=== PATIENT | female | born 1990 | race Caucasian/White ===

== ENCOUNTER 2017-03-23 21:52 | Emergency (ER) | payer BC, OTHER ==
[~2017-03-23] VITALS: Ht 165.1 cm; Wt 124.7 kg
[2017-03-23] MEDS ORDERED: NS 1,000 ML IV ONE (22:15)
[2017-03-23] MEDS ORDERED: HYDROmorphone HCL 1 MG/ML SYRINGE (J1170) IV PRN (22:15)
[2017-03-23] MEDS ORDERED: ONDANSETRON 4MG/2ML VIAL (J2405) IV ONE (22:15)
[2017-03-23 22:41] LABS: BASO % 0.2 % (0.0-1.0); EOS # 0.2 K/mm3 (0.0-0.50); EOS % 1.2 % (0.0-3.0); LARGE UNSTAINED CELL # 0.1 K/mm3 (0.0-0.4); LYMPH # 2.3 K/mm3 (1.5-6.5); LYMPH % 16.7 % (24.0-44.0); MEAN CORPUSCULAR HEMOGLOBIN 29.9 pg (27.0-33.0); MEAN CORPUSCULAR HGB CONC 33.8 g/dl (32.0-36.5); MEAN CORPUSCULAR VOLUME 88.6 fl (80.0-96.0); MONO # 0.6 K/mm3 (0.0-0.8); NEUTROPHILS # 10.4 K/mm3 (1.8-7.7); NEUTROPHILS % 76.8 % (36.0-66.0); PLATELET COUNT, AUTOMATED 331 k/mm3 (150-450); RED CELL DISTRIBUTION WIDTH 13.5 % (11.5-14.5); WHITE BLOOD COUNT 13.6 K/mm3 (4.0-10.0)
[2017-03-23] MEDS ORDERED: KETOROLAC 30 MG/ML VIAL (J1885) IV ONE (22:45)
[2017-03-23 22:50] VITALS: BP 139/80
[2017-03-23 22:53] LABS: ALBUMIN 3.9 GM/DL (3.2-5.2); ALBUMIN/GLOBULIN RATIO 0.89 (1.00-1.93); ALKALINE PHOSPHATASE 93 U/L (45-117); ALT/SGPT 24 U/L (12-78); ANION GAP 7 MEQ/L (8-16); AST/SGOT 13 U/L (15-37); BILIRUBIN,DIRECT < 0.1 MG/DL (0.0-0.2); BILIRUBIN,TOTAL 0.5 MG/DL (0.2-1.0); BLOOD UREA NITROGEN 13 MG/DL (7-18); CALCIUM LEVEL 9.2 MG/DL (8.5-10.1); CARBON DIOXIDE LEVEL 27 MEQ/L (21-32); CHLORIDE LEVEL 104 MEQ/L (98-107); CREATININE FOR GFR 0.76 MG/DL (0.55-1.02); GLOMERULAR FILTRATION RATE > 60.0 (>60); GLUCOSE, FASTING 89 MG/DL (70-105); POTASSIUM SERUM 3.9 MEQ/L (3.5-5.1); SODIUM LEVEL 138 MEQ/L (136-145); TOTAL PROTEIN 8.3 GM/DL (6.4-8.2)
--- NOTE | 2017-03-23 23:10 | REPUSA ---
+CT of the abdomen and pelvis without contrast Clinical statement: Pain. Technique: Multiple axial CT images were obtained from the base of the lungs to the floor of the pelv is utilizing 5 mm axial slices without administration of contrast. Coronal and sagittal reconstructio ns were also obtained. No comparison is available. Findings: Chest: The visualized lung bases are clear. Abdomen: The kidneys are normal in size bilaterally. There is no evidence of hydronephrosis. Numerous punctate nonobstructing stones are seen in the kidneys bilaterally, measuring up to 3 mm in diameter . The liver, spleen, pancreas, gallbladder and adrenal glands are unremarkable. The aorta demonstrate s normal caliber and contour. There is no abdominal lymphadenopathy or ascites. Pelvis: The bowel is unremarkable, with no obstructive or inflammatory changes. The appendix is catrachito l. The urinary bladder is within normal limits. There is no pelvic lymphadenopathy or ascites. The ot her pelvic structures appear unremarkable. Bones: There are no suspicious osseous abnormalities seen. Impression: Unremarkable CT examination of the abdomen and pelvis.
[2017-03-23] MEDS ORDERED: ZOFR4TAB3 PO (23:21)
[2017-03-23] MEDS ORDERED: PERC5TAB6 PO (23:21)
[2017-03-23] MEDS ORDERED: OXYCODONE/APAP 5MG/325MG(BULK FOR ED) 1 TABLET PO ONE (23:30)
== END 2017-03-23 23:35 | disposition home or self-care (01) ==
LOC: M ED 22:38
DX: N23 Unspecified renal colic (principal); R11.10 Vomiting, unspecified; E66.9 Obesity, unspecified; Z87.442 Personal history of urinary calculi; Z88.5 Allergy status to narcotic agent
CPT/HCPCS: 74176; 80048; 80076; 81001; 81025; 85025; 96374; 96375; 99283; J1170; J1885; J2405

== ENCOUNTER 2018-04-19 15:48 | Emergency (ER) | payer OTHER ==
[2018-04-19] MEDS: NS 1,000 ML IV (16:32)
[2018-04-19] MEDS: KETOROLAC 30 MG/ML VIAL (J1885) IV (16:36)
[2018-04-19] MEDS: ONDANSETRON 4MG/2ML VIAL (J2405) IV (16:36)
[2018-04-19 16:50] LABS: KETONE, URINE AUTO RFX NEGATIVE (NEGATIVE); LEUKOCYTE ESTERASE UR AUTO RFX NEGATIVE (NEGATIVE); MUCUS, URINE RFX SMALL (NEGATIVE); NITRITE, URINE AUTO RFX NEGATIVE (NEGATIVE); RBC, URINE AUTO RFX 4 /HPF (0-3); SPECIFIC GRAVITY UR AUTO RFX 1.019 (1.002-1.035); SQUAM EPITHELIAL CELL UR AURFX 5 /HPF (0-6); WBC, URINE AUTO RFX 4 /HPF (0-3)
[2018-04-19 16:58] LABS: BASO % 0.4 % (0.0-1.0); EOS # 0.2 10^3/uL (0.0-0.50); EOS % 2.1 % (0.0-3.0); HEMATOCRIT 42.8 % (36.0-47.0); HEMOGLOBIN 14.2 g/dl (12.0-15.5); IMMATURE GRANULOCYTE % 0.3 % (0-3.0); LYMPH # 2.3 10^3/uL (1.5-6.5); LYMPH % 21.1 % (24.0-44.0); MEAN CORPUSCULAR HEMOGLOBIN 28.7 pg (27.0-33.0); MEAN CORPUSCULAR HGB CONC 33.2 g/dl (32.0-36.5); MEAN CORPUSCULAR VOLUME 86.6 fl (80.0-96.0); MONO # 0.7 10^3/uL (0.0-0.8); MONO % 6.1 % (0.0-5.0); NEUTROPHILS # 7.6 10^3/uL (1.8-7.7); PLATELET COUNT, AUTOMATED 354 10^3/uL (150-450); RED BLOOD COUNT 4.94 10^6/uL (4.00-5.40); RED CELL DISTRIBUTION WIDTH 13.5 % (11.5-14.5); WHITE BLOOD COUNT 10.9 10^3/uL (4.0-10.0)
[2018-04-19] MEDS: HYDROmorphone HCL 1 MG/ML SYRINGE (J1170) IV (17:04)
[2018-04-19 17:11] LABS: ALBUMIN 3.5 GM/DL (3.2-5.2); ALBUMIN/GLOBULIN RATIO 0.78 (1.00-1.93); ALKALINE PHOSPHATASE 93 U/L (45-117); ALT/SGPT 29 U/L (12-78); ANION GAP 5 MEQ/L (8-16); AST/SGOT 17 U/L (7-37); BILIRUBIN,DIRECT < 0.1 MG/DL (0.0-0.2); BILIRUBIN,TOTAL 0.2 MG/DL (0.2-1.0); BLOOD UREA NITROGEN 9 MG/DL (7-18); CALCIUM LEVEL 8.4 MG/DL (8.5-10.1); CARBON DIOXIDE LEVEL 27 MEQ/L (21-32); CHLORIDE LEVEL 108 MEQ/L (98-107); GLOMERULAR FILTRATION RATE > 60.0 (>60); GLUCOSE, FASTING 112 MG/DL (70-100); LIPASE 169 U/L (73-393); POTASSIUM SERUM 4.2 MEQ/L (3.5-5.1); SODIUM LEVEL 140 MEQ/L (136-145)
[2018-04-19] MEDS: CIPROFLOXACIN 500 MG TAB PO (17:45)
[2018-04-19] MEDS: PERCOCET 5MG/325MG TAB PO (18:09)
== END 2018-04-19 19:46 | disposition home or self-care (01) ==
LOC: M ED 15:48
DX: N23 Unspecified renal colic (principal); N20.0 Calculus of kidney; Z87.442 Personal history of urinary calculi; Z98.890 Other specified postprocedural states; Z82.49 Family history of ischemic heart disease and other diseases of the circulatory system; Z88.5 Allergy status to narcotic agent
CPT/HCPCS: J1170

== ENCOUNTER 2020-05-25 10:18 | Emergency (ER) | payer OTHER, SELFPAY ==
[~2020-05-25] VITALS: Ht 165.1 cm; Wt 142.2 kg
[~2020-05-25 10:18] MED LIST: CIPR-249 PO; PERC5TAB12 PO; ZOFR4TAB14 PO
[2020-05-25] MEDS ORDERED: NS 1,000 ML IV ONE (11:15)
[2020-05-25] MEDS ORDERED: ONDANSETRON 4MG/2ML VIAL IV ONE (11:30)
[2020-05-25] MEDS ORDERED: KETOROLAC 30 MG/ML 1ML VIAL IV ONE (11:30)
[2020-05-25 11:59] LABS: BASO % 0.4 % (0.0-1.0); EOS # 0.2 10^3/uL (0.0-0.5); HEMATOCRIT 41.8 % (36.0-47.0); HEMOGLOBIN 13.3 g/dl (12.0-15.5); LYMPH # 1.5 10^3/uL (1.5-5.0); LYMPH % 17.1 % (24.0-44.0); MEAN CORPUSCULAR HEMOGLOBIN 27.8 pg (27.0-33.0); MEAN CORPUSCULAR HGB CONC 31.8 g/dl (32.0-36.5); MEAN CORPUSCULAR VOLUME 87.3 fl (80.0-96.0); MONO # 0.6 10^3/uL (0.0-0.8); MONO % 6.7 % (0.0-5.0); NEUTROPHILS # 6.6 10^3/uL (1.5-8.5); NEUTROPHILS % 73.5 % (36.0-66.0); PLATELET COUNT, AUTOMATED 339 10^3/uL (150-450); RED BLOOD COUNT 4.79 10^6/uL (4.00-5.40); WHITE BLOOD COUNT 8.9 10^3/uL (4.0-10.0)
[2020-05-25 12:38] LABS: ALBUMIN 3.4 GM/DL (3.2-5.2); ALT/SGPT 26 U/L (12-78); BILIRUBIN,DIRECT < 0.1 MG/DL (0.0-0.2); BILIRUBIN,TOTAL 0.2 MG/DL (0.2-1.0); LIPASE 124 U/L (73-393); TOTAL PROTEIN 7.8 GM/DL (6.4-8.2)
[2020-05-25] MEDS ORDERED: ONDA4TAB6 PO (12:55)
[2020-05-25] MEDS ORDERED: KETO10TAB PO (12:55)
[2020-05-25] MEDS ORDERED: MACR100C43 PO (12:55)
[2020-05-25 13:10] VITALS: BP 164/90
--- NOTE | 2020-05-25 16:05 | REP ---
RENAL ULTRASOUND: Real-time sonographic evaluation of the kidneys performed. The kidneys are normal in size and echotexture, right kidney measuring 10.0 x 5.7 x 5.3 cm and left kidney 10.1 x 4.4 x 5.3 cm. There is no hydronephrosis bilaterally. There appears to be a 7 mm calculus in the lower pole of the left renal collecting system. Urinary bladder is mildly distended. Ureteral jets could not be seen in the urinary bladder with Doppler color evaluation. IMPRESSION: No hydronephrosis bilaterally. There is a 7 mm calculus in the lower pole of the left kidney. Electronically Signed by Mukund Díaz MD 05/25/2020 07:52 P
== END 2020-05-25 13:13 | disposition home or self-care (01) ==
LOC: M ED 10:18
DX: N20.2 Calculus of kidney with calculus of ureter (principal); N39.0 Urinary tract infection, site not specified; N23 Unspecified renal colic; Z88.6 Allergy status to analgesic agent
CPT/HCPCS: 76775; 80047; 80076; 81001; 83690; 84702; 85025; 87086; 96361; 96374; 96375; 99284; J1885; J2405

== ENCOUNTER → 2020-07-31 | Outpatient (CLI) | payer OTHER ==
[~2020-07-31] MED LIST changes: +KETO10TAB PO; +MACR100C43 PO; +ONDA4TAB6 PO
[2020-07-31 11:59] LABS: BASO % 0.5 % (0.0-1.0); EOS # 0.2 10^3/uL (0.0-0.5); EOS % 1.8 % (0.0-3.0); HEMATOCRIT 41.7 % (36.0-47.0); HEMOGLOBIN 13.3 g/dl (12.0-15.5); LYMPH # 1.7 10^3/uL (1.5-5.0); LYMPH % 19.4 % (24.0-44.0); MEAN CORPUSCULAR HEMOGLOBIN 27.8 pg (27.0-33.0); MEAN CORPUSCULAR HGB CONC 31.9 g/dl (32.0-36.5); MEAN CORPUSCULAR VOLUME 87.1 fl (80.0-96.0); MONO # 0.6 10^3/uL (0.0-0.8); MONO % 6.4 % (0.0-5.0); NEUTROPHILS # 6.3 10^3/uL (1.5-8.5); NEUTROPHILS % 71.6 % (36.0-66.0); PLATELET COUNT, AUTOMATED 307 10^3/uL (150-450); RED BLOOD COUNT 4.79 10^6/uL (4.00-5.40); WHITE BLOOD COUNT 8.8 10^3/uL (4.0-10.0)
[2020-07-31 12:26] LABS: ALBUMIN 3.2 GM/DL (3.2-5.2); ALT/SGPT 28 U/L (12-78); BILIRUBIN,TOTAL 0.4 MG/DL (0.2-1.0); BLOOD UREA NITROGEN 9 MG/DL (7-18); CALCIUM LEVEL 8.6 MG/DL (8.5-10.1); CARBON DIOXIDE LEVEL 27 MEQ/L (21-32); CHLORIDE LEVEL 107 MEQ/L (98-107); CHOLESTEROL LEVEL 186 MG/DL (<200); CHOLESTEROL RISK RATIO 4.325 (<5); CREATININE FOR GFR 0.76 MG/DL (0.55-1.30); FREE T4 0.79 NG/DL (0.76-1.46); GLOMERULAR FILTRATION RATE > 60.0 (>60); GLUCOSE, FASTING 88 MG/DL (70-100); HDL CHOLESTEROL 43 MG/DL (>40); LDL CHOLESTEROL 123 MG/DL (<100); NON-HDL-C 143 MG/DL; POTASSIUM SERUM 4.2 MEQ/L (3.5-5.1); SODIUM LEVEL 137 MEQ/L (136-145); TOTAL PROTEIN 7.6 GM/DL (6.4-8.2); TRIGLYCERIDES LEVEL 98 MG/DL (<150)
== END ==
LOC: M LAB 11:17
PROVIDERS: ATTEND Nurse Practitioner Family
DX: Z00.00 Encounter for general adult medical examination without abnormal findings (principal); F34.1 Dysthymic disorder

== ENCOUNTER 2021-06-21 10:40 | Emergency (ER) | payer OTHER ==
[~2021-06-21] VITALS: Ht 165.1 cm; Wt 145.4 kg
[2021-06-21 12:51] LABS: BASO % 0.4 % (0.0-1.0); EOS # 0.2 10^3/uL (0.0-0.5); EOS % 2.2 % (0.0-3.0); HEMATOCRIT 42.4 % (36.0-47.0); HEMOGLOBIN 13.6 g/dl (12.0-15.5); LYMPH # 1.8 10^3/uL (1.5-5.0); LYMPH % 18.2 % (24.0-44.0); MEAN CORPUSCULAR HEMOGLOBIN 27.4 pg (27.0-33.0); MEAN CORPUSCULAR HGB CONC 32.1 g/dl (32.0-36.5); MEAN CORPUSCULAR VOLUME 85.5 fl (80.0-96.0); MONO # 0.6 10^3/uL (0.0-0.8); MONO % 6.2 % (2.0-8.0); NEUTROPHILS % 72.6 % (36.0-66.0); PLATELET COUNT, AUTOMATED 375 10^3/uL (150-450); RED BLOOD COUNT 4.96 10^6/uL (4.00-5.40); WHITE BLOOD COUNT 9.6 10^3/uL (4.0-10.0)
[2021-06-21] MEDS ORDERED: NS 1,000 ML IV ONE (13:05)
[2021-06-21] MEDS ORDERED: KETOROLAC 30 MG/ML 1ML VIAL IV ONE (13:05)
[2021-06-21] MEDS ORDERED: ONDANSETRON 4MG/2ML VIAL IV ONE ×3 (13:05→22:00)
[2021-06-21 13:18] LABS: ALBUMIN 3.7 GM/DL (3.2-5.2); ALT/SGPT 36 U/L (12-78); BILIRUBIN,DIRECT < 0.1 MG/DL (0.0-0.2); BILIRUBIN,TOTAL 0.4 MG/DL (0.2-1.0); LIPASE 122 U/L (73-393); TOTAL PROTEIN 7.8 GM/DL (6.4-8.2)
--- NOTE | 2021-06-21 13:44 | REP ---
INDICATION: left flank pain. COMPARISON: 04/19/2018 the latest prior also without contrast TECHNIQUE: Standard helical technique without intravenous contrast on protocol utilized secondary to left flank pain FINDINGS: The lung bases are clear and unchanged. Limited evaluation of the solid intra-abdominal organs and gallbladder show no gross abnormalities or significant changes from the prior exam. Limited evaluation of the pancreas and adrenal glands show no gross abnormalities or significant changes from the prior exam. There are multiple bilateral nonobstructing nephroliths. There is no ureterolithiasis, hydronephrosis, or hydroureter. There are no urinary bladder calcifications. Limited evaluation of the abdominal aorta and para-aortic regions show no gross abnormalities or significant changes from the prior exam. Limited evaluation of the bowel loops and the mesenteries show no gross abnormalities or significant changes from the prior exam. There is no free fluid or free air. There is no evidence of a mass or adenopathy. Bone window technique throughout the examination shows no significant change in appearance of the osseous structures. IMPRESSION: Once again, there are multiple bilateral nonobstructing nephroliths. There is no evidence of acute disease. Findings as described above. <Electronically signed by Aureliano Bansal > 06/21/21 [id number]
[2021-06-21] MEDS ORDERED: NORCO, ANEXSIA 5/325MG TABLET (HYDROcodone/ACETAMINOPHEN) PO ONE (14:10)
--- NOTE | 2021-06-21 14:39 | REP ---
INDICATION: pain. COMPARISON: None. TECHNIQUE: AP and frog-leg views of the left hip. AP view of the pelvis. The FINDINGS: Left hip AP and frogleg views: Mineralization and joint spaces are normal. There is no fracture or dislocation. There are no calcifications or foreign bodies. Phleboliths are incidentally noted in the inferior pelvis. AP pelvis: No pelvic fractures are identified. The sacroiliac articulations are unremarkable. There is congenital enlargement of the right L5 transverse process. No pelvic fracture is identified. There are phleboliths inferiorly in the pelvis. IMPRESSION: Essentially negative left hip and AP pelvis. 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 <Electronically signed by Mukund Martínez > 06/21/21 [id number]
--- NOTE | 2021-06-21 14:43 | REP ---
INDICATION: pain. COMPARISON: Abdomen/pelvis CT this same date. TECHNIQUE: There are five views. FINDINGS: Vertebral body heights, interspacing and alignment are normal. There is no spondylolysis or spondylolisthesis. There is congenital enlargement of the L5 right transverse process. Mineralization and pedicles are unremarkable. Facet articulations are unremarkable. Sacroiliac articulations are unremarkable. IMPRESSION: Essentially negative lumbar spine. 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 <Electronically signed by Mukund Martínez > 06/21/21 [id number]
[2021-06-21] MEDS ORDERED: HYDROMORPHONE HCL 0.5 MG/ 0.5 ML SYRINGE (J1170 PER 1) IV ONE (16:25)
[2021-06-21 16:28] VITALS: BP 131/96
[2021-06-21] MEDS ORDERED: methocarbamoL 500 MG TAB PO ONE (16:35)
--- NOTE | 2021-06-21 21:14 | REPVR ---
PROCEDURE INFORMATION: Exam: MR Lumbar Spine Without Contrast Exam date and time: 06/21/2021 8:31 PM Age: 30 years old Clinical indication: Low back pain; Additional info: Back pain with urinary issues TECHNIQUE: Imaging protocol: Multiplanar magnetic resonance images of the lumbar spine without intravenous contrast. COMPARISON: CR Spine. Lumbosacral, complete 06/21/2021 2:11 PM FINDINGS: Vertebral body height and AP alignment is preserved. There is disc desiccation predominately at L4-L5. Negative for discitis/osteomyelitis. Conus medullaris terminates at T12. No epidural fluid collection. L1-L2: No central or foraminal stenosis. L2-L3: No central or foraminal stenosis. L3-L4: Minimal disc bulge without significant central or foraminal stenosis. L4-L5: Minimal disc bulge and mild bilateral facet joint arthropathy. There is right foraminal annular tear. No significant central canal stenosis. There is mild bilateral foraminal stenosis. L5-S1: Transitional anatomy without central or foraminal stenosis. IMPRESSION: 1. No acute abnormality involving the lumbar spine. 2. Mild degenerative disc disease without significant central canal compromise throughout. Electronically signed by: Ivan Bueno On 06/21/2021 21:14:18 PM
[2021-06-21] MEDS ORDERED: ZOFR4TAB16 PO (22:05)
[2021-06-21] MEDS ORDERED: METH-1164 PO (22:09)
== END 2021-06-21 22:23 | disposition home or self-care (01) ==
LOC: M ED 10:40
DX: M54.5 Low back pain (principal); R11.0 Nausea; N20.0 Calculus of kidney; R30.9 Painful micturition, unspecified; M51.36 Other intervertebral disc degeneration, lumbar region; E66.9 Obesity, unspecified; Z88.6 Allergy status to analgesic agent; Z88.8 Allergy status to other drugs, medicaments and biological substances; Z79.899 Other long term (current) drug therapy
CPT/HCPCS: 72110; 72148; 73502; 74176; 80047; 80076; 81001; 83690; 84702; 85025; 96361; 96374; 96375; 96376; 99283; J1170; J1885; J2405

== ENCOUNTER → 2021-07-12 | Outpatient (CLI) | payer OTHER ==
[~2021-07-12] MED LIST changes: +METH-1164 PO; +ZOFR4TAB16 PO
--- NOTE | 2021-07-12 17:23 | REP ---
INDICATION: CALCULUS OF KIDNEY COMPARISON: None. TECHNIQUE: Supine views of the abdomen and pelvis. FINDINGS: Small bilateral nonobstructing intrarenal calculi are identified. The bowel gas pattern is nonspecific. No organomegaly. Skeletal structures are intact. Phleboliths noted in the pelvis. IMPRESSION: Bilateral nephroliths. <Electronically signed by Joseluis Decker > 07/12/21 [id number]
== END ==
LOC: M RAD 16:51
PROVIDERS: ATTEND Nurse Practitioner Women's Health
DX: N20.0 Calculus of kidney (principal)

== ENCOUNTER → 2021-08-06 | Outpatient (CLI) | payer OTHER | LOC: M LABSMTC 11:47 | PROVIDERS: ATTEND Anesthesiology | DX: Z01.812 Encounter for preprocedural laboratory examination (principal); Z20.822 Contact with and (suspected) exposure to COVID-19 ==

== ENCOUNTER 2021-08-11 10:18 | Day surgery (SDC) | payer OTHER ==
[~2021-08-11] VITALS: Ht 165.1 cm; Wt 145.1 kg
[~2021-08-11 10:18] MED LIST changes: +LIDOCAINE 1% MDV 20ML VIAL SQ PRN; +LIDOCAINE 1% SDV 5ML VIAL As Ordered ONE; +LR 1,000 ML IV ONE; +ceFAZolin SOD 1 GM in D5W MINI-BAG PLUS 50 ML IV ONE; +ceFAZolin SOD 2 GM in IV 1 EA IV ONE
--- NOTE | 2021-08-11 11:00 | REP ---
INDICATION: KIDNEY STONE- KUB PRIOR TO SDC. COMPARISON: KUB, 07/12/2021. TECHNIQUE: Evaluation of the abdomen was performed on 2 AP supine images. FINDINGS: There are multiple calcific densities projected over both renal outlines consistent with caliceal stones. There is no evidence of ureterolithiasis. The bowel gas pattern is normal. There are no bony abnormalities of the abdomen or pelvis. IMPRESSION: Bilateral nephrolithiasis. Does not appear significantly changed. <Electronically signed by Jose Motley > 08/11/21 [id number]
[2021-08-11] MEDS ORDERED: LIDOCAINE 2% 100MG/5ML SDV (FOR ANES.) As Ordered ONE (13:52)
[2021-08-11] MEDS ORDERED: MIDAZOLAM INJ 2MG/2ML VIAL (J2250 PER 1MG) As Ordered ONE (13:52)
[2021-08-11] MEDS ORDERED: propofoL 200 MG/20 ML VIAL As Ordered ONE ×2 (13:52→14:36)
[2021-08-11] MEDS ORDERED: fentaNYL 100 MCG/2 ML INJECTION (J3010) As Ordered ONE (13:53)
[2021-08-11] MEDS ORDERED: ONDANSETRON 4MG/2ML VIAL As Ordered ONE (13:55)
[2021-08-11] MEDS ORDERED: HYDR-3713 PO (14:18)
--- NOTE | 2021-08-11 14:34 | ROOPDOC ---
[facility] Report Of Operation Report of Operation DATE OF PROCEDURE: 08/11/21 PREPROCEDURE DIAGNOSES: [right renal stone]. POSTPROCEDURE DIAGNOSES: [same]. PROCEDURE PERFORMED: [eswl right renal stone]. SURGEON: [Megha Murphy], WEB SYSTEMS DEVELOPER: [none], ANESTHESIA: [mac]. ESTIMATED BLOOD LOSS: Approximately [0] mL. COMPLICATIONS: [none]. REMARKS: [30yo obese wf with bl renal stones. Options discussed. Right eswl arranged. Informed consent obtained. No guarantees given. Risks discussed including infection, pain, bleeding, scarring, failure of surgery, need for more surgery and others.]. FINDINGS: SPECIMENS REMOVED: [none] PROCEDURE NOTE: . DESCRIPTION OF PROCEDURE: [Met with pt in preop area and surgery again discussed. Informed consent obtained. Pt brought to OR room. Supine on lithotripter. Well padded. Mac anesthesia started. Time out performed. Fluoroscopy and u/s used to locate stone. Easily seen on fluoroscopy. Stone about 5mm. Eswl performed. 2500 shocks delivered. Pt tolerated all well and left room in satisfactory condition. Home with pain medication.]. CINDY MURPHY MD Aug 11, 2021 14:34
[2021-08-11] MEDS ORDERED: LR 1,000 ML IV SCH (15:55)
[2021-08-11] MEDS ORDERED: ONDANSETRON 4MG/2ML VIAL IV PRN (15:55)
[2021-08-11] MEDS ORDERED: PERCOCET 5MG/325MG TAB PO PRN (15:55)
[2021-08-11 16:35] VITALS: BP 137/83
== END 2021-08-11 16:40 | disposition home or self-care (01) ==
LOC: M SDC 10:18
PROVIDERS: ATTEND Urology
DX: N20.0 Calculus of kidney (principal); F41.9 Anxiety disorder, unspecified; F32.9 Major depressive disorder, single episode, unspecified; E66.9 Obesity, unspecified; G43.909 Migraine, unspecified, not intractable, without status migrainosus; Z88.5 Allergy status to narcotic agent; Z88.8 Allergy status to other drugs, medicaments and biological substances
CPT/HCPCS: 50590; 74018; 81025; J0690; J2250; J2405; J3010

== ENCOUNTER → 2021-09-06 | Outpatient (CLI) | payer OTHER ==
[~2021-09-06] MED LIST changes: +HYDR-3713 PO; -LIDOCAINE 1% MDV 20ML VIAL SQ PRN; -LIDOCAINE 1% SDV 5ML VIAL As Ordered ONE; -LR 1,000 ML IV ONE; -ceFAZolin SOD 1 GM in D5W MINI-BAG PLUS 50 ML IV ONE; -ceFAZolin SOD 2 GM in IV 1 EA IV ONE
--- NOTE | 2021-09-06 16:26 | REP ---
INDICATION: CALCULUS OF KIDNEY COMPARISON: None. TECHNIQUE: Supine view of the abdomen and pelvis. FINDINGS: Bowel gas pattern is nonspecific and without obstruction or perforation. No organomegaly. Small 2-3 mm calcifications in the left kidney are identified. Skeletal structures intact. IMPRESSION: Normal abdominal radiograph. <Electronically signed by Joseluis Decker > 09/06/21 1618
== END ==
LOC: M RAD 16:06
PROVIDERS: ATTEND Urology
DX: N20.0 Calculus of kidney (principal)

== ENCOUNTER → 2021-09-08 | Outpatient (REF) | payer OTHER | LOC: M SMT 17:41 | PROVIDERS: ATTEND Nurse Practitioner Women's Health | DX: N20.0 Calculus of kidney (principal) ==

== ENCOUNTER 2021-10-24 15:11 | Emergency (ER) | payer OTHER ==
[~2021-10-24] VITALS: Ht 165.1 cm; Wt 150.5 kg
--- OUTSIDE RECORDS SUMMARY | 2021-10-24 15:18 | CCD ---
Author Author [facility] Organization [facility] Address Unknown Phone Unavailable Care Team Providers Care Vault Worker Name Role Phone Jose Gracia Unavailable PROBLEMS Type Condition ICD9-CM Code [id number] Code Onset Dates Condition S tatus W/U Status Risk SNOMED Code Notes Problem Calculus of distal left ureter N20.1 Active confir med 033418335 Problem Calculus of kidney N20.0 Active confirmed 9 4994699 Problem Dysmenorrhea N94.6 Active confirmed 8111076 00 Problem Generalized anxiety disorder F41.1 Active confirme d 81438522 Problem Excessive and frequent menstruation with irregular cycle N92.1 Active confirmed 417047259 Problem Kidney stones N20.0 Active confirmed 067261 07 Problem Body mass index (BMI) of 45.0 to 49.9 in adult Z68 .42 Active confirmed 361030138 We discussed dietary tips and healthy exercise tips and she will continue working on this at a steady pace Problem Liver lesion, right lobe K76.89 Active confirmed 640028213 I reassured Elizabeth that these are likely benign, but we will do a follow-up ultrasound in 6 months. If she should have any abdominal pain or concerns between now and then she should call me Problem History of anxiety Z86.59 Active confirmed 1 38563071 Problem Panic disorder [episodic paroxysmal anxiety] F41.0 Active confirmed 678932662 ALLERGIES Allergen (clinical drug ingredient) Drug/Non Drug Allergy do cumented on EMR Reaction Allergy Type Onset Date Status morphine Morphine Sulfate([facility] Code:[address]-83) Itching Drug A llergy Active prednisone Prednisone PANICK ATTACKS Drug Allergy Active ENCOUNTERS from 1990 to 2021-08-12 Encounter Location Date Provider Diagnosis [facility] U[facility] [phone] [place] [address] Jul, Jose Gracia Calculus of kidney N20.0 IMMUNIZATIONS No Information SOCIAL HISTORY Sex Assigned At : Social History Observation Description Sex Assigned At Unknown REASON FOR REFERRAL No Information VITAL SIGNS No information MEDICATIONS No Information PROCEDURES No Information RESULTS No Results REASON FOR VISIT No Information MEDICAL (GENERAL) HISTORY Type Description Date Medical History anxiety Medical History kidney stones Surgical History colonoscopy 11/2010 Surgical History Cystoscopy, Right Retrograde Pyelogram, Right Ureteroscopy, Basket Extraction of Stones & Right Double J Stent Placement 04/08/2013 Surgical History lithotripsy 2013 Goals Section No Information Health Concerns No Information MEDICAL EQUIPMENT No Information MENTAL STATUS No Information FUNCTIONAL STATUS No Information ASSESSMENTS Encounter Date Diagnosis Assessment Notes Treatment Notes Treatm ent Clinical Notes Jul, Calculus of kidney (ICD-10 - N20.0) PLAN OF TREATMENT Treatment Notes Test Name Order Date Abdomen, Flat Plate (KUB) PLZ or SMC 2021-08-12 Next Appt Details Provider Name:Kathie Fry, 2021-08-20 1 01:30:00 PM, [id number], , [place], [address], Insurance Providers Payer Name Payer Address Payer Phone Insured Name Patient Relati onship to Insured Coverage Start Date Coverage End Date [facility] [address] [place] [address] ELIZABETH MENDEZ self
--- OUTSIDE RECORDS SUMMARY | 2021-10-24 15:18 | CCD ---
Author Author [facility] Organization [facility] Address Unknown Phone Unavailable Care Team Providers Care Tilt Wall Supervisor Name Role Phone Jose Gracia Unavailable PROBLEMS Type Condition ICD9-CM Code [id number] Code Onset Dates Condition S tatus W/U Status Risk SNOMED Code Notes Problem Calculus of distal left ureter N20.1 Active confir med 466415914 Problem Calculus of kidney N20.0 Active confirmed 9 2589191 Problem Dysmenorrhea N94.6 Active confirmed 5151392 00 Problem Generalized anxiety disorder F41.1 Active confirme d 89953367 Problem Excessive and frequent menstruation with irregular cycle N92.1 Active confirmed 414041403 Problem Kidney stones N20.0 Active confirmed 587479 07 Problem Body mass index (BMI) of 45.0 to 49.9 in adult Z68 .42 Active confirmed 649484003 We discussed dietary tips and healthy exercise tips and she will continue working on this at a steady pace Problem Liver lesion, right lobe K76.89 Active confirmed 067849370 I reassured Elizabeth that these are likely benign, but we will do a follow-up ultrasound in 6 months. If she should have any abdominal pain or concerns between now and then she should call me Problem History of anxiety Z86.59 Active confirmed 1 97812049 Problem Panic disorder [episodic paroxysmal anxiety] F41.0 Active confirmed 057402613 ALLERGIES Allergen (clinical drug ingredient) Drug/Non Drug Allergy do cumented on EMR Reaction Allergy Type Onset Date Status morphine Morphine Sulfate([facility] Code:[address]-34) Itching Drug A llergy Active prednisone Prednisone PANICK ATTACKS Drug Allergy Active ENCOUNTERS from 1990 to 2021-08-11 Encounter Location Date Provider Diagnosis [facility] [phone] [place] [address] Jul, Jose Turecki IMMUNIZATIONS No Information SOCIAL HISTORY Sex Assigned [...] No Information FUNCTIONAL STATUS No Information ASSESSMENTS No Information PLAN OF TREATMENT Next Appt Details Provider Name:Kathie Fry, 2021-08-20 1 01:30:00 PM, [address] [facility] [address], , [place], [address], Insurance Providers Payer Name Payer Address Payer Phone Insured Name Patient Relati onship to Insured Coverage Start Date Coverage End Date [facility] [address] [place] [address] ELIZABETH MENDEZ self
--- OUTSIDE RECORDS SUMMARY | 2021-10-24 15:18 | CCD ---
Author Author [facility] Organization [facility] Address Unknown Phone Unavailable Care Team Providers Care Residential Roofer Name Role Phone Kathie Fry Unavailable PROBLEMS Type Condition ICD9-CM Code WHU10-IE Code Onset Dates Condition S tatus W/U Status Risk SNOMED Code Notes Problem Calculus of distal left ureter N20.1 Active confir med 554649807 Problem Calculus of kidney N20.0 Active confirmed 9 3675328 Problem Dysmenorrhea N94.6 Active confirmed 8411281 00 Problem Generalized anxiety disorder F41.1 Active confirme d 57516829 Problem Excessive and frequent menstruation with irregular cycle N92.1 Active confirmed 399266477 Problem Kidney stones N20.0 Active confirmed 958812 07 Problem Body mass index (BMI) of 45.0 to 49.9 in adult Z68 .42 Active confirmed 869828812 We discussed dietary tips and healthy exercise tips and she will continue working on this at a steady pace Problem Liver lesion, right lobe K76.89 Active confirmed 657372171 I reassured Elizabeth that these are likely benign, but we will do a follow-up ultrasound in 6 months. If she should have any abdominal pain or concerns between now and then she should call me Problem History of anxiety Z86.59 Active confirmed 1 83077533 Problem Panic disorder [episodic paroxysmal anxiety] F41.0 Active confirmed 627508999 ALLERGIES Allergen (clinical drug ingredient) Drug/Non Drug Allergy do cumented on EMR Reaction Allergy Type Onset Date Status morphine Morphine Sulfate([facility] Code:[address]-25) Itching Drug A llergy Active prednisone Prednisone PANICK ATTACKS Drug Allergy Active ENCOUNTERS from 1990 to 2021-09-09 Encounter Location Date Provider Diagnosis [facility] [address] [phone] [place] [address] Aug, Kathie Fry Calculus of kidney N20.0 IMMUNIZATIONS No Information SOCIAL HISTORY Sex Assigned At : Social History Observation Description Sex Assigned At Unknown REASON FOR REFERRAL No Information VITAL SIGNS Weight 320 lbs Aug, Weight-kg 145.15 kg Aug, Height 65.5 in Aug, BMI 52.44 kg/m2 Aug, Heart Rate 96 /min Aug, Respiratory Rate 18 /min Aug, Temperature 98.1 degrees Fahrenheit Aug, Oximetry 99 Aug, Blood pressure systolic 126 mm Hg Aug, Blood pressure diastolic 74 mm Hg Aug, MEDICATIONS No Known Medications PROCEDURES No Information RESULTS No Results REASON FOR VISIT S/P RIGHT ESWL MEDICAL (GENERAL) HISTORY Type Description Date Medical [...] Notes Treatment Notes Treatm ent Clinical Notes Aug, Calculus of kidney (ICD-10 - N20.0) Aug, Other Low-oxalate diet material was printed,Low-oxalate diet material was published to portal PLAN OF TREATMENT Future Test Test Name Order Date XRAY ABDOMEN 1 VIEW (KUB) AXR.ABDP ADM [id number] Calculus Analysis, [place] [id number] Next Appt Details 6 Months Reason: Provider Name:Kathie Fry, 2022-02-18 1 01:45:00 PM, [address], , [place], [address], Insurance Providers Payer Name Payer Address Payer Phone Insured Name Patient Relati onship to Insured Coverage Start Date Coverage End Date [facility] [address] [place] [address] ELIZABETH MENDEZ self
--- OUTSIDE RECORDS SUMMARY | 2021-10-24 15:19 | CCD ---
Author Author [facility] Organization [facility] Address Unknown Phone Unavailable Care Team Providers Care Canal Equipment Maintenance Supervisor Name Role Phone Recore, Kathie Mitra WHNP Unavailable Unavailable Recore, Kathie Mirta WHNP Unavailable Unavailable Recore, Kathie Mitra WHNP Unavailable Unavailable Recore, Kathie Mitra WHNP Unavailable Unavailable Recore, Kathie Mitra WHNP Unavailable Unavailable Recore, Kathie Mitra WHNP Unavailable Unavailable Recore, Kathie Mitra WHNP Unavailable Unavailable Recore, Kathie Mitra WHNP Unavailable Unavailable Recore, Kathie Mitra WHNP Unavailable Unavailable Recore, Kathie Mitra WHNP Unavailable Unavailable Recore, Kathie Mitra WHNP Unavailable Unavailable Recore, Kathie Mitra WHNP Unavailable Unavailable Recore, Kathie Mitra WHNP Unavailable Unavailable Recore, Kathie Mitra WHNP Unavailable Unavailable Recore, Kathie Mitra WHNP Unavailable Unavailable Recore, Kathie Mitra WHNP Unavailable Unavailable Recore, Kathie Mitra WHNP Unavailable Unavailable Recore, Kathie Mitra WHNP Unavailable Unavailable Recore, Kathie Mitra WHNP Unavailable Unavailable Recore, Kathie Mitra WHNP Unavailable Unavailable Recore, Kathie Mitra WHNP Unavailable Unavailable Recore, Kathie Mitra WHNP Unavailable Unavailable Recore, Kathie Mitra WHNP Unavailable Unavailable Recore, Kathie Mitra WHNP Unavailable Unavailable Recore, Kathie Mitra WHNP Unavailable Unavailable Recore, Kathie Mitra WHNP Unavailable Unavailable Recore, Kathie Mitra WHNP Unavailable Unavailable Recore, Kathie Mitra WHNP Unavailable Unavailable Recore, Kathie Mitra WHNP Unavailable Unavailable Recore, Kathie Mitra WHNP Unavailable Unavailable Recore, Kathie Mitra WHNP Unavailable Unavailable Recore, Kathie Mitra WHNP Unavailable Unavailable Sandeep Gonzalez MD Unavailable Unavailable Sandeep Gonzalez MD Unavailable Unavailable TaylorstSandeep MD Unavailable Unavailable Sandeep Gonzalez MD Unavailable Unavailable TaylorstSandeep MD Unavailable Unavailable ZeinamastSandeep MD Unavailable Unavailable ZeinamastSandeep MD Unavailable Unavailable ZeinamastSandeep MD Unavailable Unavailable ZeinamastSanedep MD Unavailable Unavailable ZeinamastSandeep MD Unavailable Unavailable SarmastSandeep MD Unavailable Unavailable SarmastSandeep MD Unavailable Unavailable SarmastSandeep MD Unavailable Unavailable SarmastSandeep MD Unavailable Unavailable SarmastSandeep MD Unavailable Unavailable SarmastSandeep MD Unavailable Unavailable ZeinamastSandeep MD Unavailable Unavailable SarmastSandeep MD Unavailable Unavailable SarmastSandeep MD Unavailable Unavailable SarmastSandeep MD Unavailable Unavailable SarmastSandeep MD Unavailable Unavailable SarmastSandeep MD Unavailable Unavailable SarmastSandeep MD Unavailable Unavailable ZeinamastSandeep MD Unavailable Unavailable SarmastSandeep MD Unavailable Unavailable Sarmast, Sandeep MD Unavailable Unavailable Sarmast, Sandeep MD Unavailable Unavailable Sarmast, Sandeep MD Unavailable Unavailable Sarmast, Sandeep MD Unavailable Unavailable Sarmast, Sandeep MD Unavailable Unavailable Sarmast, Sandeep MD Unavailable Unavailable Sarmast, Sandeep MD Unavailable Unavailable Sarmast, Sandeep MD Unavailable Unavailable Sarmast, Sandeep MD Unavailable Unavailable Sarmast, Sandeep MD Unavailable Unavailable Sarmast, Sandeep MD Unavailable Unavailable Sarmast, Sandeep MD Unavailable Unavailable Sarmast, Sandeep MD Unavailable Unavailable Sarmast, Sandeep MD Unavailable Unavailable Sarmast, Sandeep MD Unavailable Unavailable Sarmast, Sandeep MD Unavailable Unavailable Sarmast, Sandeep MD Unavailable Unavailable Sarmast, Sandeep MD Unavailable Unavailable Sarmast, Sandeep MD Unavailable Unavailable Sarmast, Sandeep MD Unavailable Unavailable Re-disclosure Warning The records that you are about to access may contain information from federally-assisted alcohol or drug abuse programs. If such information is present, then the following federally mandated warning applies: This information has been disclosed to you from records protected by federal confidentiality rules (42 CFR part 2). The federal rules prohibit you from making any further disclosure of this information unless further disclosure is expressly permitted by the written consent of the person to whom it pertains or as otherwise permitted by 42 CFR part 2. A general authorization for the release of medical or other information is NOT sufficient for this purpose. The Federal rules restrict any use of the information to criminally investigate or prosecute any alcohol or drug abuse patient.The records that you are about to access may contain highly sensitive health information, the redisclosure of which is protected by Article 27-F of the [facility] Public Health law. If you continue you may have access to information: Regarding HIV / AIDS; Provided by facilities licensed or operated by the [facility] Office of Mental Health; or Provided by the [facility] Office for People With Developmental Disabilities. If such information is present, then the following [facility] mandated warning applies: This information has been disclosed to you from confidential records which are protected by state law. State law prohibits you from making any further disclosure of this information without the specific written consent of the person to whom it pertains, or as otherwise permitted by law. Any unauthorized further disclosure in violation of state law may result in a fine or chcf sentence or both. A general authorization for the release of medical or other information is NOT sufficient authorization for further disc losure. Allergies and Adverse Reactions Type Description Substance Reaction Status Data Source(s ) Drug allergy prednisone prednisone [facility] Drug allergy morphine Morphine ITCHING [facility] Family History Family Member Name Family Member Gender Family Member Status Date o f Status Description Data Source(s) Unknown Condition [facility] Unknown Condition [facility] Encounters Encounter Providers Location Date Indications Data Source(s ) Emergency Attender: Sandeep Gonzalez MD 04/2021 01:28:00 PM EST - 10/24/2021 01:55:00 PM EST CSQUC-stomach bug; vomiting with blood [facility] CSQUC-stomach bug; vomiting with blood Patient discharged. Postop visit [address] [facility] [address] 09/08/2021 12:00:00 AM EDT eCW1 ([facility]) Unknown [address] [facility] [address] 08/12/2021 12:00:00 AM EDT eCW1 ([facility]) Unknown [address] [facility] [address] 08/10/2021 12:00:00 AM EDT eCW1 ([facility]) Outpatient Attender: Kathie MAGAÑA 08/04/2021 11 :54:00 AM EDT Lab [facility] Unknown [address] [facility] [id number] 07/13/2021 12:00:00 AM EDT eCW1 ([facility]) Outpatient [address] [facility] [address] 07/12/2021 12:00:00 AM EDT eCW1 ([facility]) (TV_Virtual) [facility] Visit [address] [place] [address] 06/13/2021 12:00:00 AM EDT eCW1 ([facility] hospital) (TV_Virtual) [facility] [address] [place] [address] 05/30/2021 12:00:00 AM EDT eCW1 (Critical access hospital) (TV_Virtual) [facility] [address] [place] [address] 04/13/2021 12:00:00 AM EDT eCW1 (Critical access hospital) Outpatient 04/02/2021 11:34:11 AM EDT [facility]) (TV_Virtual) [facility] [address] [place] [address] 03/29/2021 12:00:00 AM EDT eCW1 (Critical access hospital) (TV_Virtual) [facility] [address] [place] [address] 03/10/2021 12:00:00 AM EDT eCW1 (Critical access hospital) (TV_Virtual) [facility] [address] [place] [address] 02/22/2021 12:00:00 AM EDT eCW1 (Critical access hospital) (TV_Virtual) [facility] [address] [place] [address] 02/07/2021 12:00:00 AM EDT eCW1 (Critical access hospital) (TV_Virtual) [facility] [address] [place] [address] 01/10/2021 12:00:00 AM EST eCW1 (Critical access hospital) (TV_Virtual) [facility] [address] [place] [address] 12/27/2020 12:00:00 AM EST eCW1 (Critical access hospital) (TV_Virtual) [facility] [address] [place] [address] 12/13/2020 12:00:00 AM EST eCW1 (Critical access hospital) (TV_Virtual) [facility] [address] [place] [phone] 11/29/2020 12:00:00 AM EST eCW1 (Critical access hospital) (TV_Virtual) [facility] [address] [place] [address] 11/15/2020 12:00:00 AM EST eCW1 (Critical access hospital) (TV_Virtual) [facility] [address] [place] [address] 10/28/2020 12:00:00 AM EST eCW1 (Critical access hospital) Immunizations Vaccine Date Status Description Data Source(s) COVID-19 VACCINE Moderna 10/21/2021 12:00:00 AM EST completed [facility] Vaccine Series Complete: YESThis Data wa s Submitted to [facility] [employer]. COVID-19 VACCINE Moderna 03/08/2021 12:00:00 AM EDT completed [facility] Vaccine Series Complete: YESThis Data wa s Submitted to [facility] [employer]. COVID-19 VACC,MRNA(MODERNA)/PF 02/04/2021 12:00:00 AM EDT completed [facility] COVID-19 VACCINE Moderna 02/04/2021 12:00:00 AM EDT completed [facility] Vaccine Series Complete: NOThis Data was Submitted to [facility] [employer]. Medications Medication Brand Name Start Date Product Form Dose Route Admi nistrative Instructions Pharmacy Instructions Status Indications Reaction Description Data Source(s) 60 mcg (15 mcg x 4)/0.5 mL 10/21/2021 12:00:00 AM EST syring e 0 INJECT DIRECTED PER STANDING ORDER INJECT DIRECTED PER STANDING ORDER SOLD: 10/21/2021 [facility] 100 mcg/0.5 mL 10/21/2021 12:00:00 AM EST suspension 0 INJECT DIRECTED (THIRD DOSE) INJECT DIRECTED (THIRD DOSE) SOLD: 10/21/2021 [facility] Acetaminophen 325 MG / Hydrocodone Bitartrate 5 MG Ora l Tablet 5-325 mg HYDROCODONE/ACETAMINOPHEN 08/11/2021 12:00:00 AM EDT tablet 5 TAKE ONE TABLET BY MOUTH EVERY 6 HOURS NEEDED FOR PAIN MAXIMUM DAILY DOSE = 4 TAKE ONE TABLET BY MOUTH EVERY 6 HOURS NEEDED FOR PAIN MAXIMUM DAILY DOSE = 4 SOLD: 08/11/2021 [facility] 500 mg 06/22/2021 12:00:00 AM EDT tablet 30 TAKE ONE TABLET BY MOUTH THREE TIMES A DAY TAKE ONE TABLET BY MOUTH THREE TIMES A DAY SOLD: 06/22/2021 [facility] 4 mg 06/22/2021 12:00:00 AM EDT tablet 5 TAKE ONE TABLET BY MOUTH EVERY 6 TO 8 HOURS NEEDED FOR NAUSEA / VOMITING TAKE ONE TABLET BY MOUTH EVERY 6 TO 8 HOURS NEEDED FOR NAUSEA / VOMITING SOLD: 06/22/2021 [facility] 500 mg 03/22/2021 12:00:00 AM EDT capsule 21 TAKE ONE CAPSULE BY MOUTH EVERY 8 HOURS FOR 7 DAYS TAKE ONE CAPSULE BY MOUTH EVERY 8 HOURS FOR 7 DAYS HARISH [facility] Insurance Providers Payer name Policy type / Coverage type Policy ID Covered green party ID Covered green party's relationship to damon Policy Damon Plan Information LIFETIME BENEFIT SOLUTIONS [id number] SELF PAY CIGNA [id number] SP [id number] CIGNA [id number] SP [id number] SELF PAY Cigna Health Life [id number] SP [id number] SELF PAY CIGNA [id number] SP [id number] CIGNA [id number] SP [id number] SELF PAY ID IDENTIFICATION [id number] Other Insurance [id number] [employer] Cross [id number] Blue Cross/Gabriella eld [id number] CIGNA [id number] Commercial Insurance [id number] [place] [employer] [place] [id number] SP [id number] [employer] [place] O [id number] S [id number] SELF PAY HEA UNAVAILABLE [id number] S UNAVAIL ABLE SELF PAY HEA UNAVAILABLE [id number] S UNAVAIL ABLE GEICO DIRECT [id number] SP [id number] GEICO GENERAL INS [place] [id number] Othe r Insurance [id number] [employer] LIFE INSURANCE CO [id number] Commer cial Insurance [id number] LIF[employer]IME BENEFITS SOLUTIONS [id number] Comme rcial Insurance [id number] [employer] Blue Cross [id number] Blue Cross/Gabriella eld [id number] [facility] [id number] Commercial Insurance [id number] In[employer] INS [place] [id number] SP [id number] BCBS [place] PPO [id number] EXCELLUS BCBS B [id number] C VYW [employer] Blue Cross 0 Blue Cross/Shield LIFETIME BENEFITS SOLUTIONS 0 Commercial Insurance [employer]S [id number] [employer] CLAIMS [id number] SP [id number] Lifetime [employer] Commercial [id number] Family Dependent LIFETIME BENEFIT SOLUTIONS [id number] CH [id number] CIGNA HEALTHCARE [id number] SP [id number] CIGNA HEALTHCARE [id number] SP [id number] LIFETIME BENEFIT SOLUTIONS [id number] CIGNA HEALTHCARE [id number] SP [id number] CIGNA/MVP/CONN GEN/PREFE O [id number] S [id number] CIGNA HEALTHCARE [id number] SP [id number] SELF PAY ONLY SP [facility] [place] [place] [id number] Othe r Insurance [id number] LIFETIME BENEFITS SOLUTIONS [id number] Comme rcial Insurance [id number] [employer] INSURANCE [place] [id number] Commer cial Insurance [id number] Problems, Conditions, and Diagnoses Code Display Name Description Problem Type Effective Dates Data Source(s) Z01.812 Encounter for preprocedural laboratory e xamination Z01.812 - Encounter for preprocedural laboratory examination Diagnosis 08/04/2021 11:54:00 AM EDT [facility] N20.0 Kidney stone Kidney stones Problem 07/12/2021 12:00:00 AM EDT eCW1 ([facility]) F41.0 [id number] Panic disorder [episodic paroxysmal anxie ty] Problem 11/10/2020 12:00:00 AM EST eCW1 ([facility]) F41.1 [id number] Generalized anxiety disorder Problem 020 12:00:00 AM EST eCW1 ([facility]) Surgeries/Procedures No Information Results ID Date Data Source [id number] 08/06/2021 11:25:00 AM EDT [facility] Name Value Range Interpretation Code Description Data Daksha rce(s) Supporting Document(s) SARS-CoV-2 (COVID-19) RNA [Presence] in Respiratory specimen by ANALISA with probe detection Not Detected [facility] This lab was ordered by [facility] and reported by [employer] ID Date Data Source [id number] 08/04/2021 01:43:00 PM EDT [facility] Run: 08/06/21 0953 INTERFACED REPORT Name: Elizabeth Mendez Age/Sex: 30/F Location: [facility] Acct: [id number] Unit: [id number] Status: REG REF Room/Bed: Re08/04/21 Disch: Chris Dr: Kathie Fry SENIOR RESEARCH MANAGER Specimen #: [id number] Ordered : 08/04/21 Collected : 08/04/21 By: LILIA Received: 08/04/21 By: GINA Source: URINE CC Specimen Description: Procedure Result - COLONY COUNT Final COLONY COUNT LESS THAN 1,000 CFU/ML URINE CULTURE Final NO GROWTH 24 HOURS NO SIGNIFICANT GROWTH 48 HOURS URINE CULTURE Preliminary (Corrected) NO GROWTH 24 HOURS END OF REPORT Name Value Range Interpretation Code Description Data Daksha rce(s) Supporting Document(s) WHITE BLOOD COUNT 8.92 10^3/uL 4.00-10.50 N [facility] RED BLOOD COUNT 4.72 10^6/uL 3.90-5.20 [facility] HEMOGLOBIN 12.9 G/DL 11.5-15.6 [facility] 39.9 % 35.0-46.0 [facility] MCV 84.5 FL 80.0-100.0 N [facility] MCH 27.3 PG 27.0-34.0 N [facility] MCHC 32.3 G/DL 32-36 N [facility] RDW 13.7 % 11.5-14.5 N [facility] PLATELET COUNT 351 10^3/uL 130-400 N [facility] MPV 9.9 FL 8.7-13.2 N [facility] GRAN % (AUTO) 72.2 % 42.0-75.0 N [facility] LYMPH % (AUTO) 18.8 % 20.0-51.0 L [facility] MONO % (AUTO) 5.6 % 2.0-15.0 N [facility] EOS % (AUTO) 2.6 % 0.0-11.0 N [facility] BASO % (AUTO) 0.4 % 0.0-2.0 N [facility] IG % (AUTO) 0.4 % 1.00-5.00 [facility] IG # (AUTO) 0.0 10^3/uL <0.5 [facility] GRAN # (AUTO) 6.43 10^3/uL 1.50-6.50 N [facility] LYMPH # (AUTO) 1.7 k/uL 1.0-5.0 N [facility] MONO # (AUTO) 0.50 k/uL 0.20-1.50 N [facility] EOS # (AUTO) 0.23 10^3/uL 0.00-1.10 N [facility] BASO # (AUTO) 0.04 10^3/uL 0.00-0.20 N [facility] ID Date Data Source [id number] 08/04/2021 01:54:00 PM EDT [facility]: 08/06/21 0953 INTERFACED REPORT Name: Elizabeth Mendez Age/Sex: 30/F Location: [facility] Acct: [id number] Unit: [id number] Status: REG REF Room/Bed: Re08/04/21 Disch: Att Dr: Kathie Fry SENIOR RESEARCH MANAGER Specimen #: [id number] Ordered : 08/04/21 Collected : 08/04/21 By: LILIA Received: 08/04/21 By: GINA Source: URINE CC Specimen Description: Procedure Result - COLONY COUNT Final COLONY COUNT LESS THAN 1,000 CFU/ML URINE CULTURE Final NO GROWTH 24 HOURS NO SIGNIFICANT GROWTH 48 HOURS URINE CULTURE Preliminary (Corrected) NO GROWTH 24 HOURS END OF REPORT Name Value Range Interpretation Code Description Data Daksha rce(s) Supporting Document(s) PROTHROMBIN TIME 11.7 SEC 8.9-13.3 N [facility] INR 1.0 0.0-3.6 N [facility] Therapeutic Values of INR are generally between 2.0-3.0 except for Prosthetic Valves (High Risk 2.5-3.5) The use of INR is restricted to patient on stable oral anticoagulant therapy. ID Date Data Source [id number] 08/04/2021 01:57:00 PM EDT [facility] Run: 08/06/21 0953 INTERFACED REPORT Name: Elizabeth Mendez Age/Sex: 30/F Location: [facility] Acct: [id number] Unit: [id number] Status: REG REF Room/Bed: Re08/04/21 Disch: Att Dr: Kathie Fry NP Specimen #: [id number] Ordered : 08/04/21 Collected : 08/04/21 By: LILIA Received: 08/04/21 By: GINA Source: URINE CC Specimen Description: Procedure Result - COLONY COUNT Final COLONY COUNT LESS THAN 1,000 CFU/ML URINE CULTURE Final NO GROWTH 24 HOURS NO SIGNIFICANT GROWTH 48 HOURS URINE CULTURE Preliminary (Corrected) NO GROWTH 24 HOURS END OF REPORT Name Value Range Interpretation Code Description Data Daksha rce(s) Supporting Document(s) HCG QUALITATIVE SPECIMEN SERUM walkby jslyhl ID Date Data Source [id number] 08/04/2021 02:12:00 PM EDT [facility] Run: 08/06/21 0953 INTERFACED REPORT Name: Elizabeth Mendez Age/Sex: 30/F Location: [facility] Acct: [id number] Unit: [id number] Status: REG REF Room/Bed: Re08/04/21 Disch: Chris Dr: Kathie Fry SENIOR RESEARCH MANAGER Specimen #: [id number] Ordered : 08/04/21 Collected : 08/04/21 By: LILIA Received: 08/04/21 By: GINA Source: URINE CC Specimen Description: Procedure Result - COLONY COUNT Final COLONY COUNT LESS THAN 1,000 CFU/ML URINE CULTURE Final NO GROWTH 24 HOURS NO SIGNIFICANT GROWTH 48 HOURS URINE CULTURE Preliminary (Corrected) NO GROWTH 24 HOURS END OF REPORT Name Value Range Interpretation Code Description Data Daksha rce(s) Supporting Document(s) SODIUM 138 MEQ/L 135-145 N [facility] POTASSIUM 4.6 MEQ/L 3.5-5.3 N [facility] CHLORIDE 104 MEQ/L 94-110 N [facility] CARBON DIOXIDE 28 MEQ/L 22-33 N [facility] ANION GAP 11 5-16 N [facility] BLOOD UREA NITRO 11 MG/DL 7-25 N [facility] CREATININE 0.8 MG/DL 0.6-1.4 N [facility] GFR 84.2 ML/MIN [facility] Stage G2 - Mildly decreased kidney func tion The GFR is an estimate of the Glomerular Filtration Rate. It is an aid to assess a patient's renal function. It is not a conclusive diagnosis of kidney disease. GFR normal is >=90 The MDRD GFR calculation is considered valid between the ages of 18 and 75 years only. BUN/CREAT RATIO 13 8-36 N [facility] GLUCOSE 91 MG/DL 70-100 N [facility] CA 8.9 MG/DL 8.7-10.5 N [facility] ID Date Data Source [id number] 08/04/2021 02:52:00 PM EDT [facility] Run: 08/06/21 0953 INTERFACED REPORT Name: Elizabeth Mendez Age/Sex: 30/F Location: [facility] Acct: [id number] Unit: [id number] Status: REG REF Room/Bed: Re08/04/21 Disch: Chris Dr: Kathie Fry SENIOR RESEARCH MANAGER Specimen #: [id number] Ordered : 08/04/21 Collected : 08/04/21 By: LILIA Received: 08/04/21 By: GINA Source: URINE CC Specimen Description: Procedure Result - COLONY COUNT Final COLONY COUNT LESS THAN 1,000 CFU/ML URINE CULTURE Final NO GROWTH 24 HOURS NO SIGNIFICANT GROWTH 48 HOURS URINE CULTURE Preliminary (Corrected) NO GROWTH 24 HOURS END OF REPORT Name Value Range Interpretation Code Description Data Daksha rce(s) Supporting Document(s) COLOR,UR STRAW YELLOW [facility] APPEARANCE,UR CLEAR CLEAR [facility] PH,UR 7.0 5.0-8.0 [facility] SPECIFIC GRAVITY,UR 1.002 1.002-1.035 [facility] PROTEIN,UR NEGATIVE MG/DL NEGATIVE [facility] GLUCOSE, UR NEGATIVE MG/DL NEGATIVE [facility] KETONES,UR NEGATIVE MG/DL NEGATIVE [facility] OCCULT BLOOD,UR NEGATIVE NEGATIVE [facility] NITRATE,UR NEGATIVE NEGATIVE [facility] LEUKOCYTE ESTERASE ,UR NEGATIVE NEGATIVE [facility] BILIRUBIN,UR NEGATIVE NEGATIVE [facility] UROBILINOGEN,UR 0.2-1.0 EU MG/DL NEG-0-1.0 [facility] ID Date Data Source [id number] 08/06/2021 09:53:00 AM EDT [facility] Run: 08/06/21 0953 INTERFACED REPORT Name: Elizabeth Mendez Age/Sex: 30/F Location: [facility] Acct: [id number] Unit: [id number] Status: REG REF Room/Bed: Re08/04/21 Disch: Att Dr: Kathie Fry SENIOR RESEARCH MANAGER Specimen #: [id number] Ordered : 08/04/21 Collected : 08/04/21 By: LILIA Received: 08/04/21 By: GINA Source: URINE CC Specimen Description: Procedure Result - COLONY COUNT Final COLONY COUNT LESS THAN 1,000 CFU/ML URINE CULTURE Final NO GROWTH 24 HOURS NO SIGNIFICANT GROWTH 48 HOURS URINE CULTURE Preliminary (Corrected) NO GROWTH 24 HOURS END OF REPORT Name Value Range Interpretation Code Description Data Daksha rce(s) Supporting Document(s) ID Date Data Source [id number] 08/04/2021 01:54:00 PM EDT [facility] Run: 08/06/21 0953 INTERFACED REPORT Name: Elizabeth Mendez Age/Sex: 30/F Location: [facility] Acct: [id number] Unit: [id number] Status: REG REF Room/Bed: Re08/04/21 Disch: Att Dr: Kathie Fry SENIOR RESEARCH MANAGER Specimen #: [id number] Ordered : 08/04/21 Collected : 08/04/21 By: LILIA Received: 08/04/21 By: GINA Source: URINE CC Specimen Description: Procedure Result - COLONY COUNT Final COLONY COUNT LESS THAN 1,000 CFU/ML URINE CULTURE Final NO GROWTH 24 HOURS NO SIGNIFICANT GROWTH 48 HOURS URINE CULTURE Preliminary (Corrected) NO GROWTH 24 HOURS END OF REPORT Name Value Range Interpretation Code Description Data Daksha rce(s) Supporting Document(s) PTT 40.7 SEC 22.2-34.9 H [facility] ID Date Data Source [id number] 08/04/2021 01:57:00 PM EDT [facility] Run: 08/06/21 0953 INTERFACED REPORT Name: Elizabeth Mendez Age/Sex: 30/F Location: [facility] Acct: [id number] Unit: [id number] Status: REG REF Room/Bed: Re08/04/21 Disch: Chris Dr: Kathie Fry SENIOR RESEARCH MANAGER Specimen #: [id number] Ordered : 08/04/21 Collected : 08/04/21 By: LILIA Received: 08/04/21 By: GINA Source: URINE CC Specimen Description: Procedure Result - COLONY COUNT Final COLONY COUNT LESS THAN 1,000 CFU/ML URINE CULTURE Final NO GROWTH 24 HOURS NO SIGNIFICANT GROWTH 48 HOURS URINE CULTURE Preliminary (Corrected) NO GROWTH 24 HOURS END OF REPORT Name Value Range Interpretation Code Description Data Daksha rce(s) Supporting Document(s) HCG RESULT,S NEGATIVE [facility] Reference range is Negative "Extreme" early may have low levels of HCG present. If is suspected, repeat testing with a new specimen in 48-72 hours Procedure Social History No Information Vital Signs ID Date Data Source UNK Name Value Range Interpretation Code Description Data Source(s) Body weight 320 [lb_av] 320 [lb_av] eCW1 ([facility] [facility] Body weight 145.15 kg 145.15 kg W1 ([facility]) Body height 65.5 [in_i] 65.5 [in_i] eCW1 ([facility]) Body mass index (BMI) [Ratio] 52.44 kg/m2 52.44 kg/m2 [facility] ([facility]) Heart rate 96 /min 96 /min W1 ([facility]) Respiratory rate 18 /min 18 /min W1 ([facility]) Body temperature 98.1 [degF] 98.1 [degF] eCW1 ( [facility]) Systolic blood pressure 126 mm[Hg] 126 mm[Hg] e CW1 ([facility]) Diastolic blood pressure 74 mm[Hg] 74 mm[Hg] eCW1 ([facility]) Body weight 320 [lb_av] 320 [lb_av] eCW1 ([facility]) Body weight 145.15 kg 145.15 kg eCW1 ([facility]) Body height 65.5 [in_i] 65.5 [in_i] eCW1 ([facility]) Body mass index (BMI) [Ratio] 52.44 kg/m2 52.44 kg/m2 eCW1 ([facility]) Heart rate 88 /min 88 /min eCW1 ([facility]) Respiratory rate 18 /min 18 /min eCW1 ([facility]) Body temperature 97.6 [degF] 97.6 [degF] eCW1 ( [facility]) Systolic blood pressure 140 mm[Hg] 140 mm[Hg] e CW1 ([facility]) Diastolic blood pressure 88 mm[Hg] 88 mm[Hg] eCW1 ([facility])
[2021-10-24 16:06] LABS: BASO % 0.4 % (0.0-1.0); EOS # 0.2 10^3/uL (0.0-0.5); EOS % 2.4 % (0.0-3.0); HEMATOCRIT 40.2 % (36.0-47.0); HEMOGLOBIN 12.9 g/dl (12.0-15.5); LYMPH # 1.6 10^3/uL (1.5-5.0); LYMPH % 18.9 % (24.0-44.0); MEAN CORPUSCULAR HEMOGLOBIN 27.1 pg (27.0-33.0); MEAN CORPUSCULAR HGB CONC 32.1 g/dl (32.0-36.5); MEAN CORPUSCULAR VOLUME 84.5 fl (80.0-96.0); MONO # 0.5 10^3/uL (0.0-0.8); MONO % 5.6 % (2.0-8.0); NEUTROPHILS # 5.9 10^3/uL (1.5-8.5); NEUTROPHILS % 72.3 % (36.0-66.0); PLATELET COUNT, AUTOMATED 318 10^3/uL (150-450); RED BLOOD COUNT 4.76 10^6/uL (4.00-5.40); WHITE BLOOD COUNT 8.2 10^3/uL (4.0-10.0)
[2021-10-24 16:31] LABS: HCG, SERUM QUALITATIVE NEGATIVE (NEGATIVE)
[2021-10-24 16:32] LABS: ALBUMIN 3.4 GM/DL (3.2-5.2); ALT/SGPT 31 U/L (12-78); BILIRUBIN,DIRECT < 0.1 MG/DL (0.0-0.2); BILIRUBIN,TOTAL 0.3 MG/DL (0.2-1.0); BLOOD UREA NITROGEN 11 MG/DL (7-18); CALCIUM LEVEL 9.3 MG/DL (8.5-10.1); CARBON DIOXIDE LEVEL 29 MEQ/L (21-32); CHLORIDE LEVEL 104 MEQ/L (98-107); CREATININE FOR GFR 0.76 MG/DL (0.55-1.30); GLOMERULAR FILTRATION RATE > 60.0 (>60); GLUCOSE, FASTING 93 MG/DL (70-100); LIPASE 89 U/L (73-393); POTASSIUM SERUM 4.1 MEQ/L (3.5-5.1); SODIUM LEVEL 138 MEQ/L (136-145); TOTAL PROTEIN 7.8 GM/DL (6.4-8.2)
[2021-10-24] MEDS ORDERED: ONDANSETRON 4 MG ORAL DISINTEGRATING TAB PO ONE (18:15)
[2021-10-24] MEDS ORDERED: OMEPRAZOLE 20 MG CAP PO ONE (18:15)
--- NOTE | 2021-10-24 18:42 | REP ---
INDICATION: hematemesis, diarrhea. COMPARISON: KUB, 09/06/2021. TECHNIQUE: Upright and supine images of the abdomen and AP upright PA image of the chest were obtained. FINDINGS: The lungs are clear. The heart borders mediastinum and pulmonary vascular pattern normal. There are no bony abnormalities of the chest. Upright and supine films of the abdomen demonstrated normal bowel gas pattern. There is a 6 x 2 mm calcification projected over the lower pole the left kidney consistent with a caliceal stone. There are multiple phleboliths in the pelvis. There are no bony abnormalities of the abdomen or pelvis. IMPRESSION: 1. No evidence of acute cardiopulmonary pathology. 2. Left nephrolithiasis. <Electronically signed by Jose Motley > 10/24/21 0606
--- OUTSIDE RECORDS SUMMARY | 2021-10-24 18:46 | CCD ---
Author Author [facility] Organization [facility] Address Unknown Phone Unavailable Care Team Providers Care Multi Craft Maintenance Technician Name Role Phone Recore, Kathie Mitra WHNP [...] Recore, Kathie Mitra WHNP Unavailable Unavailable Sandeep Gonzlaez MD Unavailable Unavailable Sandeep Gonzalez MD Unavailable [...] is protected by Article 27-F of the [facility] Public Health law. If you continue you may have access to information: Regarding HIV / AIDS; Provided by facilities licensed or operated by the [facility] Office of Mental Health; or Provided by the [facility] Office for People With Developmental Disabilities. If such information is present, then the following [facility] mandated warning applies: This information has [...] law may result in a fine or usp sentence or both. A general authorization for the release of medical or other information is NOT sufficient authorization for further disc losure. Allergies and Adverse Reactions Type Description Substance Reaction Status Data Source(s ) Drug allergy prednisone prednisone [facility] Drug allergy morphine Morphine [facility] Family History Family Member Name Family Member Gender Family Member Status Date o f Status Description Data Source(s) Unknown Condition [facility] Unknown Condition [facility] Encounters Encounter Providers Location Date Indications Data Source(s ) Emergency Attender: Sandeep Gonzalez MD 04/2021 01:28:00 PM EST - 10/24/2021 01:55:00 PM EST CSQU[facility]-stomach bug; vomiting with blood [facility]QUC-stomach bug; vomiting with blood Patient discharged. Postop visit [address] [facility] [phone] 09/08/2021 12:00:00 AM EDT eCW1 ([facility]) Unknown [address] [facility] [address] 08/12/2021 12:00:00 AM EDT eCW1 ([facility]) Unknown [address] [facility] [address] 08/10/2021 12:00:00 AM EDT eCW1 ([facility]) Outpatient Attender: Kathie MAGAÑA 08/04/2021 11 :54:00 AM EDT Lab [facility] Unknown [address] [facility] [address] 07/13/2021 12:00:00 AM EDT eCW1 ([facility]) Outpatient [address] [facility] [address] 07/12/2021 12:00:00 AM EDT eCW1 ([facility]) (TV_Virtual) [facility] [address] [place] [address] 06/13/2021 12:00:00 AM EDT eCW1 ([facility]) (TV_Virtual) [facility] [address] [place] [address] 05/30/2021 12:00:00 AM EDT eCW1 ([facility]) ([facility]) [facility] [address] [place] [phone] 04/13/2021 12:00:00 AM EDT eCW1 ([facility]) Outpatient 04/02/2021 11:34:11 AM EDT [facility]) ([facility]) [facility] [address] [place] [phone] 03/29/2021 12:00:00 AM EDT eCW1 ([facility]) (TV_Virtual) [facility] [address] [place] [phone] 03/10/2021 12:00:00 AM EDT eCW1 ([facility]) ([facility]_Virtual) [facility] [address] [place] [address] 02/22/2021 12:00:00 AM EDT eCW1 ([facility]) ([facility]_Virtual) [facility] [address] [place] [phone] 02/07/2021 12:00:00 AM EDT eCW1 ([facility]) ([facility]) [facility] [address] [place] [address] 01/10/2021 12:00:00 AM EST eCW1 ([facility]) (TV_Virtual) [facility] [address] [place] [phone] 12/27/2020 12:00:00 AM EST eCW1 ([facility]) (TV_Virtual) [facility] [address] [place] [phone] 12/13/2020 12:00:00 AM EST eCW1 ([facility]) (TV_Virtual) [facility] [address] [place] [phone] 11/29/2020 12:00:00 AM EST eCW1 ([facility]) (TV_Virtual) [facility] [address] [place] [address] 11/15/2020 12:00:00 AM EST eCW1 ([facility]) (TV_Virtual) [facility] [address] [place] [address] 10/28/2020 12:00:00 AM EST eCW1 ([facility]) Immunizations Vaccine Date Status Description Data Source(s) COVID-19 VACCINE Moderna 10/21/2021 12:00:00 AM EST completed [facility] Vaccine Series Complete: YESThis Data wa s Submitted to [facility]. COVID-19 VACCINE Moderna 03/08/2021 12:00:00 AM EDT completed [facility] Vaccine Series Complete: YESThis Data wa s Submitted to [facility]. COVID-19 VACC,MRNA(MODERNA)/PF 02/04/2021 12:00:00 AM EDT completed [facility] COVID-19 VACCINE Moderna 02/04/2021 12:00:00 AM EDT completed [facility] Vaccine Series Complete: NOThis Data was Submitted to [facility]. Medications Medication Brand Name Start Date Product [...] type / Coverage type Policy ID Covered constitution party ID Covered constitution party's relationship to damon Policy Damon Plan Information LIFETIME BENEFIT SOLUTIONS [id number] SELF PAY CIGNA [id number] SP [id number] CIGNA [id number] SP [id number] SELF PAY Cigna Health Life [id number] SP [id number] SELF PAY CIGNA [id number] SP [id number] CIGNA [id number] SP [id number] SELF PAY ID IDENTIFICATION [id number] Other Insurance [id number] [employer] [id number] Blue Cross/Gabriella eld [id number] CIGNA [id number] Commercial Insurance [id number] HARRISON GUINEAN C3DNA INS CO [id number] SP [id number] HARRISON GUINE[employer] [facility] O [id number] S [id number] SELF PAY HEA UNAVAILABLE [id number] S UNAVAIL ABLE SELF PAY HEA UNAVAILABLE [id number] S UNAVAIL ABLE GEICO DIRECT [id number] SP [id number] GEICO GENERAL INS [place] [id number] Othe r Insurance [id number] [employer] LIFE INSURANCE [place] [id number] Commer cial Insurance [id number] LIFETIME BENEFITS SOLUTIONS [id number] Comme rcial Insurance [id number] [employer] [id number] Blue Cross/Gabriella eld [id number] [facility] [id number] Commercial Insurance [id number] [employer] INS [place] [id number] SP [id number] BCBS [place] PPO [id number] EXCELLUS BCBS B [id number] C VYW Excell[employer] Blue Cross 0 Blue Cross/Shield LIFETIME BENEFITS SOLUTIONS 0 Commercial Insurance [employer] CLAIM[employer] [id number] [id number] [employer]ICAL CLAIMS [id number] SP [id number] Lifetime [employer] Commercial [id number] Family Dependent LIFETIME BENEFIT SOLUTIONS [id number] CH [id number] CIGNA HEALTHCARE [id number] SP [id number] CIGNA HEALTHCARE [id number] SP [id number] LIFETIME BENEFIT SOLUTIONS [id number] CIGNA HEALTHCARE [id number] SP [id number] CIGNA/MVP/CONN GEN/PREFE O [id number] S [id number] CIGNA HEALTHCARE [id number] SP [id number] SELF PAY ONLY SP [facility] GENERAL [place] [id number] Othe r Insurance [id number] LIFETIME BENEFITS SOLUTIONS [id number] Comme rcial Insurance [id number] [employer] INSURANCE [place] [id number] Commer cial Insurance [id number] Problems, Conditions, and Diagnoses Code Display Name Description Problem Type Effective Dates Data Source(s) Z01.812 Encounter for preprocedural laboratory e xamination Z01.812 - Encounter for preprocedural laboratory examination Diagnosis 08/04/2021 11:54:00 AM EDT [facility] N20.0 Kidney stone Kidney stones Problem 07/12/2021 12:00:00 AM EDT eCW1 ([facility]) F41.0 [id number] Panic disorder [episodic paroxysmal anxie ty] Problem 11/10/2020 12:00:00 AM EST eCW1 ([facility]) F41.1 [id number] Generalized anxiety disorder Problem 020 12:00:00 AM EST eCW1 ([facility]) Surgeries/Procedures No Information Results ID Date Data Source [id number] 08/06/2021 11:25:00 AM EDT [facility] Name Value Range Interpretation Code Description Data Daksha rce(s) Supporting Document(s) SARS-CoV-2 (COVID-19) RNA [Presence] in Respiratory specimen by ANALISA with probe detection Not Detected [facility] This lab was ordered by [facility] and reported by [employer] ID Date Data Source [id number] 08/04/2021 01:43:00 PM EDT [facility] Run: 08/06/21 0953 INTERFACED REPORT Name: Elizabeth Mendez Age/Sex: 30/F Location: [facility] Acct: [id number] Unit: [id number] Status: REG REF Room/Bed: Re08/04/21 Disch: Chris Dr: Kathie Fry STREET [employer] Specimen #: [id number] Ordered : 08/04/21 Collected : 08/04/21 By: [...] WHITE BLOOD COUNT 8.92 10^3/uL 4.00-10.50 [facility] RED BLOOD COUNT 4.72 10^6/uL 3.90-5.20 [facility] 12.9 G/DL 11.5-15.6 [facility] 39.9 % 35.0-46.0 [facility] MCV 84.5 FL 80.0-100.0 [facility] MCH 27.3 PG 27.0-34.0 [facility] MCHC 32.3 G/DL 32-36 [facility] RDW 13.7 % 11.5-14.5 [facility] PLATELET COUNT 351 10^3/uL 130-400 [facility] MPV 9.9 FL 8.7-13.2 [facility] GRAN % (AUTO) 72.2 % 42.0-75.0 N [facility] LYMPH % (AUTO) 18.8 % 20.0-51.0 L [facility] MONO % (AUTO) 5.6 % 2.0-15.0 N [facility] EOS % (AUTO) 2.6 % 0.0-11.0 N [facility] BASO % (AUTO) 0.4 % 0.0-2.0 [facility] IG % (AUTO) 0.4 % 1.00-5.00 [facility] IG # (AUTO) 0.0 10^3/uL <0.5 [facility] GRAN # (AUTO) 6.43 10^3/uL 1.50-6.50 N [facility] LYMPH # (AUTO) 1.7 k/uL 1.0-5.0 N [facility] MONO # (AUTO) 0.50 k/uL 0.20-1.50 N [facility] EOS # (AUTO) 0.23 10^3/uL 0.00-1.10 [facility] BASO # (AUTO) 0.04 10^3/uL 0.00-0.20 [facility] ID Date Data Source [id number] 08/04/2021 01:54:00 PM EDT [facility]: 08/06/21 0953 INTERFACED REPORT Name: Elizabeth Mendez Age/Sex: 30/F Location: [facility] Acct: [id number] Unit: [id number] Status: REG REF Room/Bed: Re08/04/21 Disch: Att Dr: Kathie Fry STRE[address] [employer] Specimen #: [id number] Ordered : 08/04/21 Collected : 08/04/21 By: [...] Document(s) PROTHROMBIN TIME 11.7 SEC 8.9-13.3 N [facility] INR 1.0 0.0-3.6 N [facility] Therapeutic Values of INR are generally between 2.0-3.0 except for Prosthetic Valves (High Risk 2.5-3.5) The use of INR is restricted to patient on stable oral anticoagulant therapy. ID Date Data Source [id number] 08/04/2021 01:57:00 PM EDT [facility] Run: 08/06/21 0953 INTERFACED REPORT Name: Elizabeth eMndez Age/Sex: 30/F Location: [facility] Acct: [id number] Unit: [id number] Status: REG REF Room/Bed: Re08/04/21 Disch: Att Dr: Kathie Fry NP Specimen #: [id number] Ordered : 08/04/21 Collected : 08/04/21 By: [...] rce(s) Supporting Document(s) HCG QUALITATIVE SPECIMEN SERUM [employer] ID Date Data Source [id number] 08/04/2021 02:12:00 PM EDT [facility] Run: 08/06/21 0953 INTERFACED REPORT Name: Elizabeth Mendez Age/Sex: 30/F Location: [facility] Acct: [id number] Unit: [id number] Status: REG REF Room/Bed: Re08/04/21 Disch: Chris Dr: Kathie Fry STRE[address] [employer] Specimen #: [id number] Ordered : 08/04/21 Collected : 08/04/21 By: ILLIA Received: 08/04/21 By: GINA Source: URINE CC Specimen Description: Procedure Result - COLONY COUNT Final COLONY COUNT LESS THAN 1,000 CFU/ML URINE CULTURE Final NO GROWTH 24 HOURS NO SIGNIFICANT GROWTH 48 HOURS URINE CULTURE Preliminary (Corrected) NO GROWTH 24 HOURS END OF REPORT Name Value Range Interpretation Code Description Data Daksha rce(s) Supporting Document(s) SODIUM 138 MEQ/L 135-145 N [facility] POTASSIUM 4.6 MEQ/L 3.5-5.3 N [facility] CHLORIDE 104 MEQ/L 94-110 N [facility] CARBON DIOXIDE 28 MEQ/L 22-33 N [facility] ANION GAP 11 5-16 N [facility] BLOOD UREA NITRO 11 MG/DL 7-25 N [facility] CREATININE 0.8 MG/DL 0.6-1.4 N [facility] GFR 84.2 ML/MIN [facility] Stage G2 - Mildly decreased kidney func tion The GFR is an estimate of the Glomerular Filtration Rate. It is an aid to assess a patient's renal function. It is not a conclusive diagnosis of kidney disease. GFR normal is >=90 The MDRD GFR calculation is considered valid between the ages of 18 and 75 years only. BUN/CREAT RATIO 13 8-36 N [facility] GLUCOSE 91 MG/DL 70-100 N [facility] CA 8.9 MG/DL 8.7-10.5 N [facility] ID Date Data Source [id number] 08/04/2021 02:52:00 PM EDT [facility] Run: 08/06/21 0953 INTERFACED REPORT Name: Elizabeth Mendez Age/Sex: 30/F Location: [facility] Acct: [id number] Unit: [id number] Status: REG REF Room/Bed: Re08/04/21 Disch: Chris Dr: Kathie Fry STRE[address] [employer] Specimen #: [id number] Ordered : 08/04/21 Collected : 08/04/21 By: [...] Daksha rce(s) Supporting Document(s) COLOR,UR STRAW YELLOW [facility] APPEARANCE,UR CLEAR CLEAR [facility] PH,UR 7.0 5.0-8.0 [facility] SPECIFIC GRAVITY,UR 1.002 1.002-1.035 [facility] PROTEIN,UR NEGATIVE MG/DL NEGATIVE [facility] GLUCOSE, UR NEGATIVE MG/DL NEGATIVE [facility] KETONES,UR NEGATIVE MG/DL NEGATIVE [facility] OCCULT BLOOD,UR NEGATIVE NEGATIVE [facility] NITRATE,UR NEGATIVE NEGATIVE [facility] LEUKOCYTE ESTERASE ,UR NEGATIVE NEGATIVE [facility] BILIRUBIN,UR NEGATIVE NEGATIVE [facility] UROBILINOGEN,UR 0.2-1.0 EU MG/DL NEG-0-1.0 [facility] ID Date Data Source [id number] 08/06/2021 09:53:00 AM EDT [facility] Run: 08/06/21 0953 INTERFACED REPORT Name: Elizabeth Mendez Age/Sex: 30/F Location: [facility] Acct: [id number] Unit: [id number] Status: REG REF Room/Bed: Re08/04/21 Disch: Att Dr: Kathie Fry STRE[address] [employer] Specimen #: [id number] Ordered : 08/04/21 Collected : 08/04/21 By: [...] rce(s) Supporting Document(s) ID Date Data Source [id number] 08/04/2021 01:54:00 PM EDT [facility] Run: 08/06/21 0953 INTERFACED REPORT Name: Elizabeth Mendez Age/Sex: 30/F Location: [facility] Acct: [id number] Unit: [id number] Status: REG REF Room/Bed: Re08/04/21 Disch: Att Dr: Kathie Fry STRE[address] [employer] Specimen #: [id number] Ordered : 08/04/21 Collected : 08/04/21 By: [...] Supporting Document(s) PTT 40.7 SEC 22.2-34.9 H [facility] ID Date Data Source [id number] 08/04/2021 01:57:00 PM EDT [facility] Run: 08/06/21 0953 INTERFACED REPORT Name: Elizabeth Mendez Age/Sex: 30/F Location: [facility] Acct: [id number] Unit: [id number] Status: REG REF Room/Bed: Re08/04/21 Disch: Chris Dr: Kathie Fry STRE[address] [employer] Specimen #: [id number] Ordered : 08/04/21 Collected : 08/04/21 By: [...] Daksha rce(s) Supporting Document(s) HCG RESULT,S NEGATIVE [facility] Reference range is Negative "Extreme" early may have low levels of HCG present. If is suspected, repeat testing with a new specimen in 48-72 hours Procedure Social History No Information Vital Signs ID Date Data Source UNK Name Value Range Interpretation Code Description Data Source(s) Body weight 320 [lb_av] 320 [lb_av] eCW1 ([facility]) Body weight 145.15 kg 145.15 kg W1 ([facility]) Body height 65.5 [in_i] 65.5 [in_i] eCW1 ([facility]) Body mass index (BMI) [Ratio] 52.44 kg/m2 52.44 kg/m2 [facility] ([facility]) Heart rate 96 /min 96 /min W1 ([facility]) Respiratory rate 18 /min 18 /min W1 ([facility]) Body temperature 98.1 [degF] 98.1 [degF] eCW1 ( [facility]) Systolic blood pressure 126 mm[Hg] 126 mm[Hg] e CW1 ([facility]) Diastolic blood pressure 74 mm[Hg] 74 mm[Hg] eCW1 ([facility]) Body weight 320 [lb_av] 320 [lb_av] eCW1 ([facility]) Body weight 145.15 kg 145.15 kg eCW1 ([facility]) Body height 65.5 [in_i] 65.5 [in_i] eCW1 ([facility]) Body mass index (BMI) [Ratio] 52.44 kg/m2 52.44 kg/m2 eCW1 ([facility]) Heart rate 88 /min 88 /min eCW1 ([facility]) Respiratory rate 18 /min 18 /min eCW1 ([facility]) Body temperature 97.6 [degF] 97.6 [degF] eCW1 ( [facility]) Systolic blood pressure 140 mm[Hg] 140 mm[Hg] e CW1 ([facility]) Diastolic blood pressure 88 mm[Hg] 88 mm[Hg] eCW1 ([facility])
[2021-10-24] MEDS ORDERED: ONDA4TAB6 PO (18:55)
[2021-10-24] MEDS ORDERED: OMEP-218 PO (18:57)
[2021-10-24 19:11] VITALS: BP 138/88
== END 2021-10-24 19:12 | disposition home or self-care (01) ==
LOC: M ED 15:11
DX: K92.0 Hematemesis (principal); R19.7 Diarrhea, unspecified; N20.2 Calculus of kidney with calculus of ureter; R51.9 Headache, unspecified; Z87.442 Personal history of urinary calculi; Z88.6 Allergy status to analgesic agent; Z79.899 Other long term (current) drug therapy
CPT/HCPCS: 36415; 74021; 80048; 80076; 83690; 84703; 85025; 99283; Q0162

== ENCOUNTER → 2022-03-09 | Outpatient (CLI) | payer OTHER ==
[~2022-03-09] MED LIST changes: +OMEP-173 PO
== END ==
LOC: M RAD 14:46
PROVIDERS: ATTEND Nurse Practitioner Women's Health
DX: N20.0 Calculus of kidney (principal)

== ENCOUNTER 2022-10-09 13:23 | Emergency (ER) | payer OTHER ==
[~2022-10-09] VITALS: Ht 165.1 cm; Wt 155.4 kg
[2022-10-09] MEDS ORDERED: ESCITALOPRAM (13:42)
[2022-10-09] MEDS ORDERED: ONDA-84 (13:42)
[2022-10-09] MEDS ORDERED: FAMOTIDINE 20MG/2ML VIAL IVP ONE (14:55)
[2022-10-09] MEDS ORDERED: ONDANSETRON 4MG 2ML VIAL IV ONE (14:55)
[2022-10-09] MEDS ORDERED: NS 1,000 ML IV ONE (14:55)
[2022-10-09 15:29] LABS: BASO % 0.4 % (0.0-1.0); EOS # 0.2 10^3/uL (0.0-0.5); EOS % 1.9 % (0.0-3.0); HEMATOCRIT 41.2 % (36.0-47.0); HEMOGLOBIN 13.1 g/dl (12.0-15.5); LYMPH # 1.5 10^3/uL (1.5-5.0); LYMPH % 13.9 % (24.0-44.0); MEAN CORPUSCULAR HEMOGLOBIN 27.7 pg (27.0-33.0); MEAN CORPUSCULAR HGB CONC 31.8 g/dl (32.0-36.5); MEAN CORPUSCULAR VOLUME 87.1 fl (80.0-96.0); MONO # 0.6 10^3/uL (0.0-0.8); MONO % 5.9 % (2.0-8.0); NEUTROPHILS # 8.3 10^3/uL (1.5-8.5); NEUTROPHILS % 77.5 % (36.0-66.0); PLATELET COUNT, AUTOMATED 336 10^3/uL (150-450); RED BLOOD COUNT 4.73 10^6/uL (4.00-5.40); WHITE BLOOD COUNT 10.7 10^3/uL (4.0-10.0)
[2022-10-09 15:45] LABS: PROTHROMBIN TIME 13.4 SECONDS (12.5-14.5)
[2022-10-09 15:58] LABS: ALBUMIN 3.6 G/DL (3.2-5.2); BILIRUBIN,DIRECT 0.1 MG/DL (<0.4); BILIRUBIN,TOTAL 0.3 MG/DL (0.3-1.2); CALCIUM LEVEL 8.3 MG/DL (8.5-10.1); CREATININE FOR GFR 1.23 MG/DL (0.55-1.30); GLOMERULAR FILTRATION RATE 54.2 (>60); POTASSIUM SERUM 4.5 MMOL/L (3.5-5.1); TOTAL PROTEIN 7.3 G/DL (5.7-8.2)
[2022-10-09] MEDS ORDERED: ONDA4TAB6 PO (15:59)
[2022-10-09] MEDS ORDERED: PERC5TAB12 PO (15:59)
[2022-10-09] MEDS ORDERED: FLOM0.4C39 PO (15:59)
[2022-10-09 16:10] VITALS: BP 138/99
== END 2022-10-09 16:42 | disposition home or self-care (01) ==
LOC: M ED 13:23
DX: N23 Unspecified renal colic (principal); K76.0 Fatty (change of) liver, not elsewhere classified; Z87.442 Personal history of urinary calculi; K27.9 Peptic ulcer, site unspecified, unspecified as acute or chronic, without hemorrhage or perforation; Z88.5 Allergy status to narcotic agent; Z88.8 Allergy status to other drugs, medicaments and biological substances
CPT/HCPCS: 74176; 80048; 80076; 81000; 81015; 83690; 85025; 85610; 96361; 96374; 96375; 99284; J2405